=== PATIENT | male | born 1985 ===

== ENCOUNTER 2018-02-18 23:19 | Inpatient (IN) | payer MEDICAID ==
[2018-02-18 23:19] VITALS: BMI 20.9
--- NOTE | 2018-02-18 23:50 | C.PDOC ---
History Of Present Illness 32 year old male presents to the ED for evaluation of suicidal ideation. Patient was recently discharged from [facility]. Patient denies HI, hallucinations, CP, SOB, trauma, fall, injury. Chief Complaint (Nursing): Psychiatric Evaluation History Per: Patient History/Exam Limitations: no limitations Onset/Duration Of Symptoms: Days Current Symptoms Are (Timing): Still Present Suicide/Self Injury Attempted (Context): None Modifying Factor(s): None Associated Symptoms: Depression, Suicidal Thoughts. denies: Suicidal Plan Involuntary Hold By: None Recent travel outside of the [place]: No Additional History Per: Patient Past Medical History Reviewed: Historical Data, Nursing Documentation, Vital Signs Vital Signs: Last Vital Signs Temp 98.0 F 02/18/18 23:28 Pulse 69 02/18/18 23:28 Resp 18 02/18/18 23:28 BP 113/74 02/18/18 23:28 Pulse Ox 100 02/19/18 04:37 - Medical History PMH: Anxiety, Bipolar Disorder, Depression, Post Traumatic Stress Disorder, Schizophrenia Denies: Diabetes, Hepatitis, HIV, HTN, Chronic Kidney Disease, Seizures, Sexually Transmitted Disease Surgical History: No Surg Hx Family History: States: Unknown Family Hx - Social History Hx Alcohol Use: Yes Hx Substance Use: Yes Review Of Systems Constitutional: Negative for: Fever, Chills Cardiovascular: Negative for: Chest Pain, Palpitations Respiratory: Negative for: Cough, Shortness of Breath Gastrointestinal: Negative for: Nausea, Vomiting, Abdominal Pain Psych: Positive for: Depression, Suicidal ideation Physical Exam - Physical Exam Appears: Non-toxic, No Acute Distress Skin: Normal Color, Warm, Dry Head: Atraumatic, Normacephalic Eye(s): bilateral: Normal Inspection Neck: Normal ROM, Supple Chest: Symmetrical Cardiovascular: Rhythm Regular Respiratory: Normal Breath Sounds, No Rales, No Rhonchi, No Wheezing Gastrointestinal/Abdominal: Soft, No Tenderness, No Guarding, No Rebound Extremity: Normal ROM, No Tenderness, No Swelling Neurological/Psych: Oriented x3, Normal Speech, Normal Cognition Gait: Steady ED Course And Treatment - Laboratory Results Result Diagrams: 02/19/18 00:14 02/19/18 00:14 O2 Sat by Pulse Oximetry: 100 (ON RA) Pulse Ox Interpretation: Normal Medical Decision Making Medical Decision Making: Plan: * Labs * UA * 1:1 Obs Awaiting for a bed to open up Disposition Discussed With : Adriel Armstrong Doctor Will See Patient In The: Hospital Counseled Patient/Family Regarding: Diagnosis - Disposition Disposition: HOSPITALIZED Disposition Time: 05:20 Condition: STABLE Forms: [facility] (Palestinian) - POA Present On Arrival: None - Clinical Impression Clinical Impression: Depressive disorder, Opiate use - Scribe Statement The provider has reviewed the documentation as recorded by the Scribe Emiliano Moran All medical record entries made by the Scribe were at my direction and personally dictated by me. I have reviewed the chart and agree that the record accurately reflects my personal performance of the history, physical exam, medical decision making, and the department course for this patient. I have also personally directed, reviewed, and agree with the discharge instructions and disposition.
[2018-02-19 00:22] LABS: BASO % 0.4 % (0.0-2.0); EOS # 0.4 K/uL (0.0-0.7); EOS % 4.9 % (0.0-4.0); HEMOGLOBIN 13.1 g/dL (12.0-18.0); LYMPH # 1.1 K/uL (1.0-4.3); MEAN CELL VOLUME 87.8 fL (80.0-94.0); MEAN CORPUSCULAR HEMOGLOBIN 30.1 pg (27.0-31.0); MEAN CORPUSCULAR HGB CONC 34.3 g/dL (33.0-37.0); MEAN PLATELET VOLUME 8.8 fL (7.2-11.7); MONO # 1.4 K/uL (0.0-0.8); MONO % 15.6 % (0.0-10.0); NEUT # 5.8 K/uL (1.8-7.0); NEUT % 66.1 % (50.0-75.0); RBC 4.34 Mil/uL (4.40-5.90); RED CELL DISTRIBUTION WIDTH 12.9 % (11.5-14.5); WHITE BLOOD COUNT 8.7 K/uL (4.8-10.8)
[2018-02-19 00:30] LABS: URINE BILIRUBIN NEGATIVE (NEGATIVE); URINE BLOOD NEGATIVE (NEGATIVE); URINE CLARITY Clear (Clear); URINE COLOR Yellow (YELLOW); URINE GLUCOSE (UA) NORMAL (Normal); URINE LEUKOCYTE ESTERASE NEG Leu/uL (Negative); URINE PROTEIN NEGATIVE (NEGATIVE); URINE UROBILINOGEN NORMAL mg/dL (0.2-1.0)
[2018-02-19 00:56] LABS: BENZODIAZEPINES, UR NEGATIVE (NEGATIVE); PHENCYCLIDINE, UR NEGATIVE (NEGATIVE)
[2018-02-19 01:12] LABS: ALB/GLOB RATIO 1.5 (1.0-2.1); ALT/SGPT 37 U/L (21-72); AST/SGOT 43 U/L (17-59); BLOOD UREA NITROGEN 9 mg/dL (9-20); CALCIUM 9.2 mg/dl (8.6-10.4); GFR AFRICAN-AMERICAN > 60; GFR NON-AFRICAN AMERICAN > 60
[2018-02-19 01:20] LABS: BARBITURATES, UR NEGATIVE (NEGATIVE)
[2018-02-19 01:22] LABS: OPIATES, UR POSITIVE (NEGATIVE)
--- NOTE | 2018-02-19 11:30 | RAD ---
Date of service: 02/19/2018 HISTORY: ttransfer to [facility]. COMPARISON: No prior. TECHNIQUE: Chest PA and lateral FINDINGS: LUNGS: No active pulmonary disease. PLEURA: No significant pleural effusion identified. No pneumothorax apparent. CARDIOVASCULAR: Normal. OSSEOUS STRUCTURES: No significant abnormalities. VISUALIZED UPPER ABDOMEN: Normal. OTHER FINDINGS: None. IMPRESSION: No active disease.
--- NOTE | 2018-02-19 11:55 | PCM.BM ---
<PatienceEstefania - Last Filed: 02/19/18 11:53> Treatment Plan Problems - Problems identified on initial assessmt Suicidal Ideations Date Initiated: 02/19/18 Time Initiated: 11:55 Assessment reference: NA Status: Active Depression Date Initiated: 02/19/18 Time Initiated: 11:56 Assessment reference: NA Status: Active Treatment assets and liabiliti Patient Assests: cooperative, motivated, self-reliant, ADL independent, good support system, cognitively intact Patient Liabilities: live alone, financial problems, poor support system, substance abuse - Milieu Protocol Maintain good personal hygiene: daily Encourage regular showers, daily Remind patient to perform daily oral care, daily Assist patient to perform ADL's Maintain personal safety: every shift Educate patient to report safety concerns to staff, every shift Monitor environment for contraband/sharps Medication safety: Monitor for expected outcome, potential side effects: every shift, Assess barriers to learning: every shift, Assess readiness for medication education: every shift <Ghazala Rai - Last Filed: 02/21/18 15:18> Family Contact Family involvement: Patient does not wish Family/SO involvement Family contact: Patient declines to allow family contact at present - Goals for Treatment Patient goals for treatment: "I want to return to [facility]." Discharge/Continuing Care - Education Needs Education Needs: Patient Medication, Patient Diagnosis/Disease Process, Patient Coping Skills, Patient Placement options, Patient Community resources - Discharge Discharge Criteria: Free of Suicidal thoughts, Normal sleep pattern, Ability to care for self, No longer exhibiting s/s of withdrawal, Reduction of target symptoms Discharge to:: Home - Treatment Team Participation Discussed with Family/SO: No Was Patient/Family/SO present at Treatment Team Meeting: Yes <Pamela Hutson - Last Filed: 02/22/18 14:12> - Diagnosis (1) Depressive disorder Status: Acute Interventions: 02/22/18 14:12 * Assess/adjust medications daily and /or as needed * See patient on an individual basis 7x/week to assess symptoms of depression * Monitor for side effects & effectiveness of medications * (2) Opiate use Status: Acute Interventions: 02/22/18 14:12 * Assess 7x/week regarding severity of withdrawal * Educate regarding risks, benefits, side effects and alternatives of medications * Use Motivational Interviewing for abstinence * Use CBT for relapse prevention * Medication management for withdrawal symptoms * Encourage medication assisted treatment *
[2018-02-19] MEDS: buPROPion 150 mg/24 Hours XL Tab PO SCH (14:26)
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
[2018-02-20] MEDS: buPROPion 150 mg/24 Hours XL Tab PO SCH (10:02)
[2018-02-21] MEDS ORDERED: Pneumococcal 23-Valent Vaccine IM ONE (10:00)
[2018-02-21] MEDS: buPROPion 150 mg/24 Hours XL Tab PO SCH (10:34)
--- NOTE | 2018-02-21 14:42 | PCM.PYCHPN ---
Psychiatric Progress Note - Psychiatric Progress Note Patient seen today, length of contact: 16 min Patient Chief Complaint: "I'm down" Problems Identified/Issues Discussed: The pt is seen, chart reviewed, case discussed with staff. The pt is compliant with medications and reports no side-effects. Symptoms are improving but needs more time to stabilize. He is anxious and claims he has a high relapse risk - discussed Pt attends groups and activities. Support given, psycho-education provided. After care discussed. Medication Change: Yes (detox ending) Medical Record Reviewed: Yes Mental Status Examination - Cognitive Function Orientation: Person, Place, Situation, Time Memory: Intact Attention: WNL Concentration: WNL Association: WNL Fund of Knowledge: WNL - Mood Mood: Depressed, Anxious - Affect Affect: Constricted - Speech Speech: Appropriate - Formal Thought Process Formal Thought Process: No Impairment - Suicidal Ideation Suicidal Ideation: No - Homicidal Ideation Homicidal Ideation: No Goal/Treatment Plan - Goal/Treatment Plan Need for Continued Stay: Discharge may exacerbated symptoms, Severe functional impairment Progress Toward Problem(s) and Goals/Treatment Plan: Taper with methadone when he starts to withdraw Gabapentin dose will be increased Wellbutrin XL for depression As needed medications All risks, benefits and alternatives of the meds discussed, and the pt agreed and understood. Attend groups and activities Supportive therapy and psychoeducation RI for abstinence CBT for relapse prevention Encourage MAT Refer to rehab or IOP, and self-help groups Smoking cessation with RI Nicotine patch if needed
[2018-02-22] MEDS: buPROPion 150 mg/24 Hours XL Tab PO SCH (10:30)
--- NOTE | 2018-02-22 14:17 | PCM.PYCHPN ---
Psychiatric Progress Note - Psychiatric Progress Note Patient seen today, length of contact: 15 min Patient Chief Complaint: "I'm not feeling well" Problems Identified/Issues Discussed: The pt is seen, chart reviewed, case discussed with staff. Support and psychoeducation given, CBT and VT used briefly No new symptoms reported, improving slowly and needs more time No SEs from medications, risks discussed. After care discussed Medication Change: Yes (detox changes daily) Medical Record Reviewed: Yes Mental Status Examination - Cognitive Function Orientation: Person, Place, Situation, Time Memory: Intact Attention: WNL Concentration: WNL Association: WNL Fund of Knowledge: WNL - Mood Mood: Depressed, Anxious - Affect Affect: Constricted - Speech Speech: Appropriate - Formal Thought Process Formal Thought Process: No Impairment - Suicidal Ideation Suicidal Ideation: No - Homicidal Ideation Homicidal Ideation: No Goal/Treatment Plan - Goal/Treatment Plan Need for Continued Stay: Discharge may exacerbated symptoms, Severe functional impairment Progress Toward Problem(s) and Goals/Treatment Plan: Taper with methadone when he starts to withdraw Gabapentin dose will be increased Wellbutrin XL for depression As needed medications All risks, benefits and alternatives of the meds discussed, and the pt agreed and understood. Attend groups and activities Supportive therapy and psychoeducation VT for abstinence CBT for relapse prevention Encourage MAT Refer to rehab or IOP, and self-help groups Smoking cessation with VT Nicotine patch if needed Estimated Date of D/C: 02/23/18
--- NOTE | 2018-02-22 14:19 | PCM.PYCHPN ---
Psychiatric Progress Note - Psychiatric Progress Note Patient seen today, length of contact: 15 min Patient Chief Complaint: "I fear I will relapse" Problems Identified/Issues Discussed: The pt is seen, chart reviewed, case discussed with staff. The pt is compliant with medications and reports no side-effects. Symptoms are improving but needs more time to stabilize; pt slept through the night. Pt attends groups and activities. Support given, psycho-education provided. After care discussed; pt has an appointment on Monday at [facility] which he is trying to reschedule so that he can stay a little longer in fear that he will relapse. Medication Change: Yes (increase gabapentin) Medical Record Reviewed: Yes Mental Status Examination - Cognitive Function Orientation: Person, Place, Situation, Time Memory: Intact Attention: WNL Concentration: WNL Association: WNL Fund of Knowledge: WNL - Mood Mood: Depressed, Anxious - Affect Affect: Constricted - Speech Speech: Appropriate - Formal Thought Process Formal Thought Process: No Impairment - Suicidal Ideation Suicidal Ideation: No - Homicidal Ideation Homicidal Ideation: No Goal/Treatment Plan - Goal/Treatment Plan Need for Continued Stay: Discharge may exacerbated symptoms, Severe functional impairment Progress Toward Problem(s) and Goals/Treatment Plan: Taper with methadone when he starts to withdraw Gabapentin dose will be increased Wellbutrin XL for depression As needed medications All risks, benefits and alternatives of the meds discussed, and the pt agreed and understood. Attend groups and activities Supportive therapy and psychoeducation MD for abstinence CBT for relapse prevention Encourage MAT Refer to rehab or IOP, and self-help groups Smoking cessation with MD Nicotine patch if needed Estimated Date of D/C: 02/23/18
[2018-02-23] MEDS: buPROPion 150 mg/24 Hours XL Tab PO SCH (09:35)
--- NOTE | 2018-02-23 16:29 | PCM.PYCHPN ---
Psychiatric Progress Note - Psychiatric Progress Note Patient seen today, length of contact: 15 min Patient Chief Complaint: "I am not ready to go home." Problems Identified/Issues Discussed: The pt is seen, chart reviewed, case discussed with staff. The pt is compliant with medications and reports no side-effects. Symptoms are improving but needs more time to stabilize; pt slept through the night; pt reports some anxiety and is afraied that he may relapse if he goes home to early. Pt wants to reschedule [facility] appointment to Monday. Pt attends groups and activities. Support given, psycho-education provided. Medication Change: Yes (increase gabapentin) Medical Record Reviewed: Yes Mental Status Examination - Cognitive Function Orientation: Person, Place, Situation, Time Memory: Intact Attention: WNL Concentration: WNL Association: WNL Fund of Knowledge: WNL - Mood Mood: Depressed, Anxious - Affect Affect: Constricted - Speech Speech: Appropriate - Formal Thought Process Formal Thought Process: No Impairment - Suicidal Ideation Suicidal Ideation: No - Homicidal Ideation Homicidal Ideation: No Goal/Treatment Plan - Goal/Treatment Plan Need for Continued Stay: Discharge may exacerbated symptoms, Severe functional impairment Progress Toward Problem(s) and Goals/Treatment Plan: Continue medications Support and psychoeducation daily Attend groups and activities daily After care planning by TIM 15 min Estimated Date of D/C: 02/23/18
[2018-02-24] MEDS: buPROPion 150 mg/24 Hours XL Tab PO SCH (09:19)
--- NOTE | 2018-02-24 23:11 | PCM.PYCHPN ---
Psychiatric Progress Note - Psychiatric Progress Note Patient seen today, length of contact: 15 min Patient Chief Complaint: I'M DEPRESSED I'M NOT SLEEPING Problems Identified/Issues Discussed: PT SEEN AND EXAMINED DISCUSSED PT WITH STAFF PT STATES HE WANTS TO STAY IN BED ALL DAY AND MUST FORCE HIMSELF TO GET UP DISCUSSED WITH PT WHAT HE COULD DO TO STAY AWAKE Medical Problems: NONE NOTED OR REPORTED Diagnostic Results: REVIEWED DSM 5 Symptoms Update: ISOLATIVE Medication Change: No Medical Record Reviewed: Yes Mental Status Examination - Cognitive Function Orientation: Person, Place, Situation, Time Memory: Intact Attention: WNL Concentration: WNL Fund of Knowledge: WNL - Mood Mood: Depressed, Anxious - Affect Affect: Constricted - Speech Speech: Appropriate - Formal Thought Process Formal Thought Process: No Impairment - Suicidal Ideation Suicidal Ideation: No - Homicidal Ideation Homicidal Ideation: No Goal/Treatment Plan - Goal/Treatment Plan Need for Continued Stay: Discharge may exacerbated symptoms, Severe functional impairment Progress Toward Problem(s) and Goals/Treatment Plan: MAJOR DEPRESSIVE DISORDER RECURRENT SEVERE WITHOUT PSYCHOTIC FEATURES CO CBT WELLBUTRIN NEURONTIN GROUP MILIEU AND RECREATIONAL THERAPY SUPPORTIVE PSYCHOTHERAPY Estimated Date of D/C: 02/23/18 - Smoking Cessation Smoking Cessation Initiated: No
[2018-02-25 06:44] VITALS: RESP 20
[2018-02-25] MEDS: buPROPion 150 mg/24 Hours XL Tab PO SCH (09:42)
--- NOTE | 2018-02-26 00:58 | PCM.PYCHPN ---
Psychiatric Progress Note - Psychiatric Progress Note Patient seen today, length of contact: 15 min Patient Chief Complaint: HOW COME I CAN'T GET BETTER? Problems Identified/Issues Discussed: PT SEEN AND EXAMINED DISCUSSED PT WITH STAFF PT CONCERNED ABOUT WHERE HE WILL LIVE AND HAVE FOOD Medical Problems: NONE NOTED OR REPORTED Diagnostic Results: REVIEWED Medication Change: No Medical Record Reviewed: Yes Mental Status Examination - Cognitive Function Orientation: Person, Place, Situation, Time Memory: Intact Attention: WNL Concentration: WNL Association: WNL Fund of Knowledge: WNL - Mood Mood: Depressed, Anxious - Affect Affect: Constricted - Speech Speech: Appropriate - Formal Thought Process Formal Thought Process: No Impairment - Suicidal Ideation Suicidal Ideation: No - Homicidal Ideation Homicidal Ideation: No Goal/Treatment Plan - Goal/Treatment Plan Need for Continued Stay: Discharge may exacerbated symptoms, Severe functional impairment Progress Toward Problem(s) and Goals/Treatment Plan: MAJOR DEPRESSIVE DISORDER RECURRENT SEVERE WITHOUT PSYCHOTIC FEATURES AR CBT WELLBUTRIN NEURONTIN GROUP MILIEU AND RECREATIONAL THERAPY SUPPORTIVE PSYCHOTHERAPY Estimated Date of D/C: 02/23/18 - Smoking Cessation Smoking Cessation Initiated: No
[2018-02-26 06:16] VITALS: BP 105/62; PULSE 81; TEMP 98.3; O2SAT 98
[2018-02-26] MEDS: buPROPion 150 mg/24 Hours XL Tab PO SCH (10:15)
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
== END 2018-02-26 12:40 | disposition home or self-care (01) | DRG 430 ==
LOC: C.ER 23:19 → C.9E 02-19 05:21 → C.5E 02-19 11:19
PROC: GZ56ZZZ Individual Psychotherapy, Supportive (ICD-10-PCS; principal; 2018-02-19)
DX: F33.2 Major depressive disorder, recurrent severe without psychotic features (principal); F11.10 Opioid abuse, uncomplicated; F43.10 Post-traumatic stress disorder, unspecified; F41.0 Panic disorder [episodic paroxysmal anxiety]; R45.851 Suicidal ideations

== ENCOUNTER 2018-08-06 12:57 | Inpatient (IN) | payer MEDICAID ==
[2018-08-06 12:58] VITALS: BMI 20.9
[2018-08-06 14:56] LABS: URINE BILIRUBIN NEGATIVE (NEGATIVE); URINE BLOOD NEGATIVE (NEGATIVE); URINE CLARITY Clear (Clear); URINE COLOR Amber (YELLOW); URINE GLUCOSE (UA) NORMAL (Normal); URINE LEUKOCYTE ESTERASE NEG Leu/uL (Negative); URINE PROTEIN 1+ mg/dL (NEGATIVE)
[2018-08-06 15:04] LABS: EOS # 0.4 K/uL (0.0-0.7); LYMPH # 0.8 K/uL (1.0-4.3); LYMPH % 18.1 % (20.0-40.0); MEAN PLATELET VOLUME 8.6 fL (7.2-11.7); MONO # 1.1 K/uL (0.0-0.8); NEUT # 2.2 K/uL (1.8-7.0)
--- NOTE | 2018-08-06 15:04 | C.PDOC ---
History Of Present Illness Patient is a 33 year old male who presents to the ED c/o SI that has been worsening for several weeks. He admits to using heroin and cocaine for the last time yesterday. Patient states that he ran out of his medication one week ago a nd did not know where to go for a follow up. He denies any HI, hallucinations, CP, SOB, or other medical complaints at the present moment. SUICIDAL IDEATION WORSENING X SEV WEEKS. PS RAN OUT OF MEDS 1 WEEK AGO AND STATES DID NOT KNOW WHERE TO GO FOR FU. +HEROIN, COCAINE ABUSE LAST USE YEST. EXAM NAD PSYCH CALM COOPERATIVE NO ACUTE INTOX/WITHDRAWAL +SI/SA REMAINDER NEG Time Seen by Provider: 08/06/18 14:36 Chief Complaint (Nursing): Psychiatric Evaluation History Per: Patient History/Exam Limitations: no limitations Onset/Duration Of Symptoms: Other (several weeks ) Current Symptoms Are (Timing): Still Present Suicide/Self Injury Attempted (Context): None Modifying Factor(s): Cocaine, Other (heroin ) Associated Symptoms: Depression, Suicidal Thoughts Involuntary Hold By: None Recent travel outside of the [place]: No Additional History Per: Patient Past Medical History Reviewed: Historical Data, Nursing Documentation, Vital Signs Vital Signs: Last Vital Signs Temp 98.9 F 08/06/18 14:29 Pulse 84 08/06/18 14:29 Resp 20 08/06/18 14:29 BP 119/76 08/06/18 14:29 Pulse Ox 90 L 08/06/18 14:29 - Medical History PMH: Anxiety, Bipolar Disorder, Depression, Post Traumatic Stress Disorder, Schizophrenia Denies: Diabetes, Hepatitis, HIV, HTN, Chronic Kidney Disease, Seizures, Sexually Transmitted Disease Surgical History: No Surg Hx - [facility] INDIVIDUAL PSYCHOTHERAPY, SUPPORTIVE (02/19/18) Family History: States: Unknown Family Hx - Social History Hx Alcohol Use: No Hx Substance Use: Yes - Immunization History Hx Tetanus Toxoid Vaccination: Yes Hx Influenza Vaccination: No Hx Pneumococcal Vaccination: No Review Of Systems Cardiovascular: Negative for: Chest Pain Respiratory: Negative for: Shortness of Breath Psych: Positive for: Depression, Suicidal ideation. Negative for: Other (homicidal ideation or hallucinations ) Physical Exam - Physical Exam Appears: Non-toxic, No Acute Distress Skin: Normal Color, Warm, Dry Head: Atraumatic, Normacephalic Oral Mucosa: Moist Neck: Normal ROM, Supple Chest: Symmetrical, No Deformity Cardiovascular: Rhythm Regular, No Murmur Respiratory: Normal Breath Sounds, No Rales, No Rhonchi, No Wheezing Gastrointestinal/Abdominal: Soft Extremity: Normal ROM Neurological/Psych: Oriented x3, Normal Speech, Normal Cognition, Other (calm, cooperative, no acute intoxication/withdrawal, +SI/SA) ED Course And Treatment - Laboratory Results Result Diagrams: 08/06/18 14:58 08/06/18 14:58 Lab Results: Urine Color Kailyn (YELLOW) 08/06/18 14:49 Urine Clarity Clear (Clear) 08/06/18 14:49 Urine pH 5.0 (5.0-8.0) 08/06/18 14:49 Ur Specific [place]ley 1.034 (1.003-1.030) H 08/06/18 14:49 Urine Protein 1+ mg/dL (NEGATIVE) H 08/06/18 14:49 Urine Glucose (UA) Normal mg/dL (Normal) 08/06/18 14:49 Urine Ketones Trace mg/dL (NEGATIVE) 08/06/18 14:49 Urine Blood Negative (NEGATIVE) 08/06/18 14:49 Urine Nitrate Negative (NEGATIVE) 08/06/18 14:49 Urine Bilirubin Negative (NEGATIVE) 08/06/18 14:49 Urine Urobilinogen 4.0 mg/dL (0.2-1.0) 08/06/18 14:49 Ur Leukocyte Esterase Neg [place]/uL (Negative) 08/06/18 14:49 Urine WBC (Auto) 1 /hpf (0-5) 08/06/18 14:49 Urine RBC (Auto) 1 /hpf (0-3) 08/06/18 14:49 Hyaline Casts 3-5 /lpf (0-2) H 08/06/18 14:49 O2 Sat by Pulse Oximetry: 90 (on RA) Progress Note: Bloodwork and Urinalysis ordered and reviewed. Reevaluation Time: 15:42 Reassessment Condition: Improved (MED CLEAR FOR PSYCH. CRISIS NOTIFIED) Disposition Counseled Patient/Family Regarding: Studies Performed, Diagnosis - Disposition Disposition: HOSPITALIZED Disposition Time: 16:34 Condition: SERIOUS Forms: [facility] (Maltese) - POA Present On Arrival: None - Clinical Impression Clinical Impression: Major depression, recurrent, Opiate use - Scribe Statement The provider has reviewed the documentation as recorded by the Scribe Ruthie Pych All medical record entries made by the Nati were at my direction and personally dictated by me. I have reviewed the chart and agree that the record accurately reflects my personal performance of the history, physical exam, medical decision making, and the department course for this patient. I have also personally directed, reviewed, and agree with the discharge instructions and disposition.
[2018-08-06 15:18] LABS: ALB/GLOB RATIO 1.6 (1.0-2.1); ALBUMIN 4.5 g/dL (3.5-5.0); ALT/SGPT 24 U/L (21-72); AST/SGOT 23 U/L (17-59); BASO % 0.4 % (0.0-2.0); BLOOD UREA NITROGEN 16 mg/dL (9-20); CALCIUM 8.7 mg/dl (8.6-10.4); EOS % 8.9 % (0.0-4.0); GFR NON-AFRICAN AMERICAN > 60; HEMOGLOBIN 14.5 g/dL (12.0-18.0); MEAN CORPUSCULAR HEMOGLOBIN 29.7 pg (27.0-31.0); MEAN CORPUSCULAR HGB CONC 32.8 g/dL (33.0-37.0); MONO % 24.8 % (0.0-10.0); NEUT % 47.8 % (50.0-75.0); NRBC % 0.1 % (0.0-2.0); PLATELET COUNT 333 K/uL (130-400); RED CELL DISTRIBUTION WIDTH 13.4 % (11.5-14.5); WHITE BLOOD COUNT 4.5 K/uL (4.8-10.8)
[2018-08-06 15:18] LABS: BARBITURATES, UR NEGATIVE (NEGATIVE); BENZODIAZEPINES, UR NEGATIVE (NEGATIVE); PHENCYCLIDINE, UR NEGATIVE (NEGATIVE)
[2018-08-06 15:35] LABS: MEAN CELL VOLUME 90.4 fL (80.0-94.0)
[2018-08-06 15:37] LABS: OPIATES, UR POSITIVE (NEGATIVE)
[2018-08-06 15:40] LABS: BANDS 2 % (0-2); EOSINOPHIL 4 % (0-4); LYMPHOCYTE 30 % (20-40); MONOCYTE 17 % (0-10); NEUTROPHIL 46 % (50-75); PLATELET ESTIMATE NORMAL (NORMAL); REACTIVE LYMPHOCYTES 1 % (0-0); TOTAL CELLS COUNTED 100
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
[2018-08-06] MEDS ORDERED: Aluminum Hydroxide/Magnesium Hydroxide Susp (30 mL) PO PRN (23:01)
--- NOTE | 2018-08-07 10:35 | PCM.PSYCH ---
Initial Psychiatric Evaluation - Initial Psychiatric Evaluation Type of Admission: Voluntary Legal Status: Capacity Chief Complaint (in patient's own words): I was feeling increasingly depressed and suicidal. History of Present Illness and Precipitating Events: Patient is a 33 years old female, who came to the ED depressed mood, suicidal ideation with plan to overdose on drugs. Patient reports history of multiple inpatient psychiatric hospitalizations. He was recently discharged from [facility] few weeks ago. Patient reports that he ran out of his medications and he relapsed on heroin and cocaine. He reports of abusing 5-10 bags of heroin along with cocaine daily. Patient reports that yesterday he abused more than 5 bags of heroin became increasingly depressed and suicidal and came to the hospital to get help. Patient reports depressed mood, feelings of hopelessness and helplessness. He also reports anhedonia, poor sleep and poor appetite. He reports at times irritability and agitation. He reports of paranoia, however he denies any auditory or visual hallucinations. He reports withdrawal symptoms from heroin including nausea, vomiting, cramps, sweating and abdominal pain. He admits history of depression and drugs in his family, as last year his brother from drug overdose. PMH: None reported Current Medications: Active Medications Generic Name Dose Route Start Last Admin Trade Name Freq PRN Reason Stop Dose Admin Al Hydrox/Mg Hydrox/Simethicone 30 ml 08/06/18 23:01 Maalox 30 Ml PO TID PRN Indigestion / Heartburn Clonidine HCl 0.1 mg 08/06/18 22:34 Catapres PO Q6 PRN withdrawal symptoms Influenza Virus Vaccine 60 mcg 08/08/18 10:00 Flucelvax Quad 1581-3350 Syr IM 08/08/18 10:01 .ONCE ONE Loperamide HCl 2 mg 08/06/18 23:01 Imodium PO Q8 PRN Diarrhea Ondansetron HCl 4 mg 08/06/18 23:01 Zofran Tab PO Q8 PRN Nausea/Vomiting Pneumococcal Polyvalent Vaccine 0.5 ml 08/08/18 10:00 Pneumovax 23 Vaccine IM 08/08/18 10:01 .ONCE ONE Quetiapine Fumarate 100 mg 08/06/18 23:00 08/06/18 23:25 Seroquel PO 100 mg HS THOM Administration Past Psychiatric History - Past Psychiatric History Previous Treatment History: Inpatient Pertinent Medical Hx (Current Medical&Sleep Prob, Allergies): Allergies Allergy/AdvReac Type Severity Reaction Status Date / Time No Known Allergies Allergy Verified 08/06/18 14:32 Gabapentin [Neurontin] 300 mg PO TID #90 cap 02/26/18 FLUoxetine [Fluoxetine HCl] 20 mg PO DAILY 08/06/18 Risperidone [Risperdal] 2 mg PO DAILY 08/06/18 Review of Systems - Review of Systems All systems: reviewed and no additional remarkable complaints except - Psychiatric Psychiatric: Anxiety, Irritability, Mood Swings, Suicidal Ideation Mental Status Examination - Personal Presentation Personal Presentation: Looks stated age - Affect Affect: Constricted, Depressed - Motor Activity Motor Activity: Calm - Reliability in Providing Information Reliability in Providing Information: Fair - Speech Speech: Organized - Mood Mood: Depressed, Anxious - Formal Thought Process Formal Thought Process: No Impairment - Obsessions/Compulsions Obsessions: No Compulsions: No - Cognitive Functions Orientation: Person, Place, Situation, Time Sensorium: Alert Attention/Concentration: Attentive Abstract Thinking: [place] Estimate of Intelligence: Below average Judgement: Imparied, as evidence by: Poor judgement, Imparied, as evidence by: Lack of insight into illness - Risk Risk: Suicidal, Withdrawal, Diminished functioning - Limitations Limitations: Living alone DSM 5 DX - DSM 5 DSM 5 Diagnosis: Bipolar depressed severe with psychotic features Opioid use disorder severe Opioid dependence Cocaine use disorder severe - Recommended/Plan of Treatment Treatment Recommendations and Plan of Treatment: Bipolar depressed severe with psychotic features Opioid use disorder severe Opioid dependence Cocaine use disorder severe CBT Psychoeducation Supportive therapy and group therapy Methadone taper for opiate withdrawal As needed withdrawal medications Seroquel for insomnia Hydroxyzine for anxiety Paxil for depression - Smoking Cessation Smoking Cessation Initiated: No
[2018-08-08] MEDS ORDERED: Pneumococcal 23-Valent Vaccine IM ONE (10:00)
[2018-08-08] MEDS ORDERED: Influenza Vaccine 60 mcg/0.5 mL SYR (4YR UP) IM ONE (10:00)
--- NOTE | 2018-08-08 11:39 | PCM.PYCHPN ---
Psychiatric Progress Note - Psychiatric Progress Note Patient seen today, length of contact: 15 min Patient Chief Complaint: I was feeling increasingly depressed. Problems Identified/Issues Discussed: Patient was seen and evaluated, chart reviewed and discussed with the staff. As per staff he remained isolative and withdrawn. He still appears depressed. He still reports feelings of hopelessness and helplessness. He still reports withdrawal symptoms from heroin However he denies any auditory or visual hallucinations. He is taking medication but denies any side effects. Symptoms are improving gradually but he needs to stay longer for further stabilization. Supportive therapy was given Medication Change: Yes Medical Record Reviewed: Yes Mental Status Examination - Cognitive Function Orientation: Person, Place, Situation, Time Memory: Intact Attention: WNL Concentration: Poor Association: WNL Fund of Knowledge: Poor - Mood Mood: Depressed, Anxious - Affect Affect: Constricted, Depressed - Speech Speech: Soft - Formal Thought Process Formal Thought Process: No Impairment - Suicidal Ideation Suicidal Ideation: No - Homicidal Ideation Homicidal Ideation: No Goal/Treatment Plan - Goal/Treatment Plan Need for Continued Stay: Remain at risks for inpatient hospitalization, Severe depression anxiety Progress Toward Problem(s) and Goals/Treatment Plan: Bipolar depressed severe with psychotic features Opioid use disorder severe Opioid dependence Cocaine use disorder severe CBT Psychoeducation Supportive therapy and group therapy Methadone taper for opiate withdrawal As needed withdrawal medications Seroquel for insomnia Hydroxyzine for anxiety Paxil for depression
--- NOTE | 2018-08-10 10:09 | PCM.PYCHPN ---
Psychiatric Progress Note - Psychiatric Progress Note Patient seen today, length of contact: 15 min Patient Chief Complaint: I was feeling less depressed. Problems Identified/Issues Discussed: Patient was seen and evaluated, chart reviewed and discussed with the staff. Patient reports improvement in the depressed mood and reports improvement in the feelings of hopelessness and helplessness. He reports improvement in the withdrawal symptoms but still reports anxiety and sweating. As per staff he remained isolative and withdrawn. However he denies any auditory or visual hallucinations. He is taking medication but denies any side effects. Symptoms are improving gradually but he needs to stay longer for further stabilization. Supportive therapy was given Medication Change: Yes Medical Record Reviewed: Yes Mental Status Examination - Cognitive Function Orientation: Person, Place, Situation, Time Memory: Intact Attention: WNL Concentration: Poor Association: WNL Fund of Knowledge: Poor - Mood Mood: Depressed, Anxious - Affect Affect: Constricted, Depressed - Speech Speech: Soft - Formal Thought Process Formal Thought Process: No Impairment - Suicidal Ideation Suicidal Ideation: No - Homicidal Ideation Homicidal Ideation: No Goal/Treatment Plan - Goal/Treatment Plan Need for Continued Stay: Remain at risks for inpatient hospitalization, Severe depression anxiety Progress Toward Problem(s) and Goals/Treatment Plan: Bipolar depressed severe with psychotic features Opioid use disorder severe Opioid dependence Cocaine use disorder severe CBT Psychoeducation Supportive therapy and group therapy Methadone taper for opiate withdrawal As needed withdrawal medications Seroquel for insomnia Hydroxyzine for anxiety Paxil for depression - Smoking Cessation Smoking Cessation Initiated: No
--- NOTE | 2018-08-11 23:13 | PCM.PYCHPN ---
Psychiatric Progress Note - Psychiatric Progress Note Patient seen today, length of contact: 15 min Patient Chief Complaint: I am still depressed and I am also sleeping more. Problems Identified/Issues Discussed: Patient seen, chart reviewed, case discussed with the staff. Issues related to illness and treatment were discussed with the patient and staff. Reported compliant with treatment with no adverse effects. Tolerating treatment very well. Reported still feeling depressed and also sleeping more. Will increase the dose of Paxil to 20 mg daily and will reduce the dose of Seroquel to 50 mg. Patient agreed with the plan. Mood reported as depressed. Affect appropriate. Calm and cooperative Awake, alert and oriented x3. Aftercare discussed with the patient. Denied any delusions, auditory or visual hallucinations, suicidal ideations or homicidal ideations at the time of evaluation. Medical Problems: None reported Diagnostic Results: Reviewed Medication Change: Yes (Dose of Paxil increased to 20 mg, dose of Seroquel decreased to 50 mg) Medical Record Reviewed: Yes Mental Status Examination - Cognitive Function Orientation: Person, Place, Situation, Time Memory: Intact Attention: WNL Concentration: WNL Association: WN Fund of Knowledge: [facility] Decription of patient's judgement and insights: Fair - Mood Mood: Depressed - Affect Affect: Depressed - Speech Speech: Soft - Formal Thought Process Formal Thought Process: No Impairment Psychotic Thoughts and Behaviors: None - Suicidal Ideation Suicidal Ideation: No - Homicidal Ideation Homicidal Ideation: No Goal/Treatment Plan - Goal/Treatment Plan Need for Continued Stay: Remain at risks for inpatient hospitalization, Discharge may exacerbated symptoms, Severe functional impairment Progress Toward Problem(s) and Goals/Treatment Plan: Patient education. Supportive therapy. Dose of Paxil increased to 20 mg. Dose of Seroquel reduced to 50 mg. Continue respiratory treatment as before. Patient will go to [facility] for follow-up care after discharge from the hospital. Estimated Date of D/C: 08/13/18 - Smoking Cessation Smoking Cessation Initiated: Yes
[2018-08-14 14:46] VITALS: RESP 20
--- NOTE | 2018-08-14 15:18 | PCM.PYCHPN ---
Psychiatric Progress Note - Psychiatric Progress Note Patient seen today, length of contact: 15 min Patient Chief Complaint: I was feeling less depressed. Problems Identified/Issues Discussed: Patient was seen and evaluated, chart reviewed and discussed with the staff. Patient reports improvement in the depressed mood and reports improvement in the feelings of hopelessness and helplessness. He reports improvement in the withdrawal symptoms but still reports anxiety and sweating. As per staff he remained isolative and withdrawn. However he denies any auditory or visual hallucinations. He is taking medication but denies any side effects. Symptoms are improving gradually but he needs to stay longer for further stabilization. Supportive therapy was given Medication Change: Yes (Dose of Paxil increased to 20 mg, dose of Seroquel dec reased to 50 mg) Medical Record Reviewed: Yes Mental Status Examination - Cognitive Function Orientation: Person, Place, Situation, Time Memory: Intact Attention: WNL Concentration: WNL Association: WNL Fund of Knowledge: WNL - Mood Mood: Depressed - Affect Affect: Depressed - Speech Speech: Soft - Formal Thought Process Formal Thought Process: No Impairment - Suicidal Ideation Suicidal Ideation: No - Homicidal Ideation Homicidal Ideation: No Goal/Treatment Plan - Goal/Treatment Plan Need for Continued Stay: Remain at risks for inpatient hospitalization, Discharge may exacerbated symptoms, Severe functional impairment Progress Toward Problem(s) and Goals/Treatment Plan: Bipolar depressed severe with psychotic features Opioid use disorder severe Opioid dependence Cocaine use disorder severe CBT Psychoeducation Supportive therapy and group therapy Methadone taper for opiate withdrawal As needed withdrawal medications Seroquel for insomnia Hydroxyzine for anxiety Paxil for depression Estimated Date of D/C: 08/13/18
[2018-08-15 07:05] VITALS: TEMP 97.5; O2SAT 97
[2018-08-15 09:45] VITALS: BP 108/65; PULSE 108
--- NOTE | 2018-08-15 11:16 | PCM.PYCHPN ---
Psychiatric Progress Note - Psychiatric Progress Note Patient seen today, length of contact: 15 min Patient Chief Complaint: I m feeling much better. Problems Identified/Issues Discussed: Patient was seen and evaluated, chart reviewed and discussed with the staff. As per staff he is socializing with peers. Patient reports improvement in the depressed mood and reports improvement in the feelings of hopelessness and helplessness. He reports improvement in the withdrawal symptoms but still reports anxiety and sweating. However he denies any auditory or visual hallucinations. He is taking medication but denies any side effects. Symptoms are improving gradually but he needs to stay longer for further stabilization. Supportive therapy was given Medication Change: Yes (Dose of Paxil increased to 20 mg, dose of Seroquel decreased to 50 mg) Medical Record Reviewed: Yes Mental Status Examination - Cognitive Function Orientation: Person, Place, Situation, Time Memory: Intact Attention: WNL Concentration: WNL Association: WNL Fund of Knowledge: WNL - Mood Mood: Depressed - Affect Affect: Depressed - Speech Speech: Soft - Formal Thought Process Formal Thought Process: No Impairment - Suicidal Ideation Suicidal Ideation: No - Homicidal Ideation Homicidal Ideation: No Goal/Treatment Plan - Goal/Treatment Plan Need for Continued Stay: Remain at risks for inpatient hospitalization, Discharge may exacerbated symptoms, Severe functional impairment Progress Toward Problem(s) and Goals/Treatment Plan: Bipolar depressed severe with psychotic features Opioid use disorder severe Opioid dependence Cocaine use disorder severe CBT Psychoeducation Supportive therapy and group therapy Methadone taper for opiate withdrawal As needed withdrawal medications Seroquel for insomnia Hydroxyzine for anxiety Paxil for depression Estimated Date of D/C: 08/13/18
--- NOTE | 2018-08-15 11:18 | PCM.PYCHDC ---
Mental Status Examination - Mental Status Examination Orientation: Person, Place, Situation, Time Memory: Intact Mood: Neutral Affect: Constricted Speech: Soft Attention: WNL Concentration: WNL Association: WNL Fund of Knowledge: WNL Formal Thought Process: No Impairment Description of patient's judgement and insight: good, fair Psychotic Thoughts and Behaviors: denies any AVH Suicidal Ideation: No Current Homicidal Ideation?: No Discharge Summary - Discharge Note Reason for Hospitalization: Patient is a 33 years old female, who came to the ED depressed mood, suicidal ideation with plan to overdose on drugs. Patient reports history of multiple inpatient psychiatric hospitalizations. He was recently discharged from [facility] few weeks ago. Patient reports that he ran out of his medications and he relapsed on heroin and cocaine. He reports of abusing 5-10 bags of heroin along with cocaine daily. Patient reports that yesterday he abused more than 5 bags of heroin became increasingly depressed and suicidal and came to the hospital to get help. Patient reports depressed mood, feelings of hopelessness and helplessness. He also reports anhedonia, poor sleep and poor appetite. He reports at times irritability and agitation. He reports of paranoia, however he denies any auditory or visual hallucinations. He reports withdrawal symptoms from heroin including nausea, vomiting, cramps, sweating and abdominal pain. He admits history of depression and drugs in his family, as last year his brother from drug overdose. Consultations:: List each consultation separately and include: 1. Reason for request. 2. Findings. 3. Follow-up Summary of Hospital Course include:: 1. Description of specific treatment plan utilized for patients during their course of treatmen. 2. Summarize the time- course for resolution of acute symptoms and/or regressed behaviors. 3. Describe issues identified and worked on during hospitalization. 4. Describe medication utilized. 5. Describe medical problems identified and treated. 6. Reassessment of suicide risk Summary of Hospital Course: During the course of his stay, patient (pt) started progressively improving and no longer remained irritable, depressed, and suicidal. His mood and anxiety were improved and he started attending groups and meetings and started socializing. Patient denied any feelings of hopelessness, helplessness, and worthlessness, denied any problem with the sleep or appetite, denied suicidal ideation or homicidal ideation. Pt denied any auditory or visual hallucinations. He denied any withdrawal symptoms. Pt was treated with medications along with supportive therapy, milieu therapy and group therapy. Some changes were made in his current medications and patient was discharged on following medications. He tolerated these medications very well and denied any side effects. - Diagnosis (1) Bipolar disorder current episode depressed Status: Acute (2) Opiate use Status: Acute - Final Diagnosis (DSM 5) Condition upon Discharge: SERIOUS DSM 5: Bipolar depressed severe with psychotic features Opioid use disorder severe Opioid dependence Cocaine use disorder severe Disposition: HOME/ ROUTINE Follow-up Treatment Plan: Followup: He was discharged to the [facility] . Education: Pt was educated and counseled about the risks and benefits of taking and not taking medications. Pt was educated and counseled about the risks of drinking and abusing drugs. Pt was educated and counseled to go to the ER or call 911 if pt develop suicidal ideation or homicidal ideation, worsening of symptoms or severe side effects of the meds. Prescriptions/Medication Reconciliation: Gabapentin [Neurontin] 300 mg PO BID #60 cap PARoxetine [Paxil] 20 mg PO DAILY #30 tab QUEtiapine [SEROquel] 50 mg PO HS #30 tab traZODone [Desyrel] 100 mg PO HS #30 tab - Smoking Cessation Smoking Cessation Medication prescribed: No - Antipsychotic Medications Pt discharged on 2 or more routine antipsychotic medications: No
== END 2018-08-15 12:45 | disposition home or self-care (01) | DRG 753 ==
LOC: C.ER 12:57 → C.5E 16:35
PROVIDERS: ADMIT Psychiatry & Neurology Psychiatry; ATTEND Psychiatry & Neurology Psychiatry
PROC: HZ52ZZZ Individual Psychotherapy for Substance Abuse Treatment, Cognitive-Behavioral (ICD-10-PCS; principal; 2018-08-06)
PROC: HZ59ZZZ Individual Psychotherapy for Substance Abuse Treatment, Supportive (ICD-10-PCS; 2018-08-06)
PROC: HZ56ZZZ Individual Psychotherapy for Substance Abuse Treatment, Psychoeducation (ICD-10-PCS; 2018-08-06)
DX: F31.5 Bipolar disorder, current episode depressed, severe, with psychotic features (principal); R45.851 Suicidal ideations; F14.20 Cocaine dependence, uncomplicated; F11.23 Opioid dependence with withdrawal; F43.10 Post-traumatic stress disorder, unspecified; Z81.8 Family history of other mental and behavioral disorders